=== PATIENT | female | born 1990 | race Caucasian/White ===

== ENCOUNTER 2023-12-19 07:51 | Emergency (ER) | payer BC, OTHER, SELFPAY ==
[2023-12-19 07:53] VITALS: BP 139/93
--- NOTE | 2023-12-19 08:36 | ED.GENMED ---
History of Present Illness
General
Chief Complaint: Skin Surface Trauma
Source: patient
Exam Limitations: none
Time Seen by Provider: 12/19/23 07:59
Nursing documentation reviewed up to this point in time: agreed with
Travel History
Have you had any contact with someone who has COVID-19?: No
Do you have any symptoms of coronavirus? Fever > 100 degrees, chills, cough, shortness of breath, sore throat, loss of taste or smell, muscle aches, or headache?: No
History of Present Illness
History of Present Illness:
33-year-old female presenting to the emergency department today with concerns of laceration to her left index finger that occurred when she was cutting a bagel prior to arrival. Immediately cleaned the area out. She was just with her primary care
doctor and she was told that her tetanus shot is up-to-date. She denies any numbness weakness or additional concerns. Denies any foreign body denies any concerns for bony injury.
Review of Systems
Review of Systems
Allergies reviewed?: Yes
All Other Systems: ROS reviewed and negative except as documented in HPI and ROS
Phy Exam
Physical Exam
Physical Exam:
GENERAL: Alert , in no apparent distress
EYE: pupils equal and reactive
NECK: Supple, no significant adenopathy.
ENT: o/p clr, mmm.
CARDIAC: Regular rate and rhythm .
LUNGS: Clear breath sounds bilaterally, no acute respiratory distress, no wheezes/rales/rhonchi
ABDOMEN: Soft, without focal tenderness, no r/g, no cvat
NEUROLOGICAL: Alert and oriented, no focal neuro deficits
SKIN: Laceration to the left sided index finger between the DIP and PIP 2.5 cm in total length semicircle in shape warm and dry, skin intact.
MUSCULOSKELETAL: No edema, well perfused.
PSYCH: Normal and appropriate interaction.
Course
Vital Signs
Initial and Last Documented VS:
Initial Vital Signs
Temp Pulse Resp BP Pulse Ox
98.7 F 67 18 139/93 100
12/19/23 07:53 12/19/23 07:53 12/19/23 07:53 12/19/23 07:53 12/19/23 07:53
Last Documented Vital Signs
Temp Pulse Resp BP Pulse Ox
98.7 F 67 18 139/93 100
12/19/23 07:53 12/19/23 07:53 12/19/23 07:53 12/19/23 07:53 12/19/23 07:53
Procedures
Laceration Closure
Left Middle Radial Second Finger:
Status of Wound: clean
Size of Wound in cm: 2.5
Description of Wound Edges: sharp and flap-well vascularized
Preparation: cleaned with saline
Anesthesia: 1% Lidocaine and Digital-Regional
Revision/Debridement: routine- no revision and irrigate-direct pressure
Wound exploration: explored to base- no FB and no tendon involvement
Type of Closure: single layer closure
Skin Closure Material: 5-0 nylon
Number of sutures: 5
MDM/Problems Addressed
MDM/Problems Addressed:
33-year-old female presenting to the emergency department today with concerns of a laceration to her left index finger occurring prior to arrival. Laceration very clean in appearance and was cleaned thoroughly here. Does not appear to be deep to
the bone or tendon. This was sutured with 5 nonabsorbable sutures and advised for removal in 14 days. Patient up-to-date with tetanus shot. No risk factors for likely infection. Patient was not started on prophylactic antibiotics. Otherwise
stable for discharge return precautions given.
*Critical Care Note
Total Time (30-74mins, 75-104mins- exclusive of procedures): Not Applicable
ED Attending Note
-
Portions of this chart may have been created with voice recognition software.� Occasional wrong word or��sound alike� substitutions may have occurred due to the inherent limitations of voice recognition software.
Discharge Plan
Departure
Patient Disposition: Home (Routine Discharge)
Date of Disposition: 12/19/23
Time of Disposition: 08:42
Patient with high blood pressure during this ER visit?: No
Condition: Good
Covid-19: Not Applicable
Discharge Problem:
Finger laceration
Instructions: Laceration Repair With Stitches (DC)
Activity Restrictions/Additional Instructions:
You came to the emergency department today with concerns of a laceration to your left index finger. This was cleaned and closed with 5 total sutures. Please keep the area clean covered and follow-up with your primary care doctor in 14 days for
suture removal. Return to the emergency department for any worsening, new or concerning symptoms.
Interventions
Interventions:
*Risk Screen - Suicide Last Done: 12/19/23 07:55
*General Assessment Last Done: 12/19/23 07:55
*Neglect/Abuse Screening Last Done: 12/19/23 07:55
*ED COVID-19 Vaccine History Last Done: 12/19/23 07:55
== END 2023-12-19 08:58 | disposition home or self-care (01) ==
LOC: EMR 07:51
PROVIDERS: EMERGENCY PHYSICIAN Emergency Medicine; FAMILY PHYSICIAN Family Medicine
DX: S61.211A Laceration without foreign body of left index finger without damage to nail, initial encounter (principal); W45.8XXA Other foreign body or object entering through skin, initial encounter
CPT/HCPCS: 99282; 12001